=== PATIENT | female | born 1940 | race Caucasian/White ===

== ENCOUNTER 2022-03-30 02:23 | Emergency (ER) | payer MEDICARE, SELFPAY ==
[2022-03-30 02:27] VITALS: BP 179/78; PULSE 80; RESP 22; TEMP 36.8; O2SAT 95; BMI 32.1
--- NOTE | 2022-03-30 02:28 | ED_ITS ---
HPI - Allergic Reaction General: Chief complaint: Allergic Reaction Stated complaint: allergic reaction Time Seen by Provider: 03/30/22 02:25 Source: patient Mode of arrival: ambulatory Limitations: no limitations History of Present Illness: HPI narrative: 81-year-old female who states that she woke up over an hour ago with rash to her trunk and arms. States she is highly allergic to insecticides and was outside yesterday and believes she came in contact with something she is allergic to she does have hives states it is extremely pruritic she denies any shortness of breath difficulty swallowing or throat swelling patient did take Benadryl at home with minimal improvement. Associated symptoms: Deny abdominal pain, nausea or vomiting Review of Systems Const: Denies: fever(s), chills, body aches or change in appetite Eyes: Denies: blurry vision or eye discomfort ENMT: Denies: throat pain or dental pain Card: Denies: chest pain Resp: Denies: dyspnea GI: Denies: abdominal pain, nausea, vomiting or diarrhea : Denies: dysuria Musc: Denies: neck pain or back pain Skin/Breast: Reports: rash Neuro: Denies: headache(s) Psych: Denies: depression Kamlesh/Lymph: Denies: easy bruising All/Imm: Reports: urticaria PFSH ED PFSH: Medical History (Updated 03/30/22 @ 03:23 by Laureano Franklin MD) No pertinent past medical history Social History (Updated 03/30/22 @ 02:30 by Laureano Franklin MD) Substance/Drug Use: never Physical Exam Const: COMMON NORMALS: no acute distress, patient oriented x3 and healthy appearing HENMT: COMMON NORMALS: normocephalic and atraumatic HEAD & SCALP: normocephalic and atraumatic Eye: COMMON NORMALS: Equal, round and reactive pupils present and EOMs intact bilaterally PUPIL: Yes Equal, round and reactive pupils present Neck/C-Spine: COMMON NORMALS: full ROM and supple Chest: COMMONS NORMALS: normal inspection of the chest and normal palpation of entire chest wall Resp: COMMON NORMALS: normal respiratory effort, No retractions, No use of accessory muscles and clear to auscultation bilaterally AUSCULTATION: clear to auscultation bilaterally Cardio: COMMON NORMALS: regular rate, regular rhythm and No murmurs present (Cardio) RATE: regular rate RHYTHM: regular rhythm GI: COMMON NORMALS: Normal to inspection, nondistended, normoactive bowel sounds present, Soft to palpation, non-tender and no masses PALPATION: Yes Soft to palpation Extremity: COMMON NORMALS: normal to inspection and full ROM Neuro: COMMON NORMALS: patient oriented x3, moves all extremities and no focal motor deficits Psych: COMMON NORMALS: mental status grossly normal, Normal thought process present and cooperative THOUGHT PROCESS: Normal thought process present Skin: COMMON NORMALS: no wounds NARRATIVE SKIN EXAM: hives to trunk and arms Course Vital Signs: Vital signs: Vital Signs Temperature 98.2 F 03/30/22 02:27 Pulse Rate 80 03/30/22 02:27 Respiratory Rate 22 H 03/30/22 02:27 Blood Pressure 179/78 03/30/22 02:27 Pulse Oximetry 95 03/30/22 02:27 MDM - Allergic Reaction Medical Decision Making Patient presents with allergic reaction with urticaria her rash here is resolved after Pepcid Benadryl and Solu-Medrol she has no airway involvement she is stable for discharge we will place her on prednisone she is to follow-up with PCP and return if worsening she understands agrees to plan. Discharge Plan Discharge Patient Disposition: Home Clinical Impression: Allergic reaction, Urticaria Prescriptions: New prednisone 50 mg tablet 50 mg PO DAILY Qty: 5 0RF Discharge Orders: Discharge ED (Routine); Ordered 03/30/22 Ordered By: Laureano Franklin Referrals: Manoj Sierra, HOME [facility] CARE RESPIRATORY THERAPIST-C [Primary Care Provider] - 1-3 days Discharge Diet: Advance as tolerated Discharge Activity: Resume usual activity Patient Instructions: General Allergic Reaction (ED) Coding Level of Care Code ED Naphthalene Still Operator for Chg Fwd Exam Comprehensive
[2022-03-30] MEDS: famotidine 20 mg/2 mL INJ 40 MG IVP (02:40)
[2022-03-30] MEDS: diphenhydrAMINE 50 mg/mL SDV 1mL IVP (02:40)
[2022-03-30 03:03] VITALS: BP 133/67; PULSE 67; RESP 18; O2SAT 97
[2022-03-30 03:33] VITALS: BP 137/55; PULSE 70; RESP 16; O2SAT 95
[2022-03-30 03:49] VITALS: BP 137/55; PULSE 70; RESP 16; O2SAT 95
== END 2022-03-30 03:33 | disposition home or self-care (01) ==
PROVIDERS: Emergency Provider Emergency Medicine; PCP Nurse Practitioner
DX: T78.40XA Allergy, unspecified, initial encounter (principal); L50.9 Urticaria, unspecified
CPT/HCPCS: 96374; 96375; 99284; J1200; J2930; J3490

== ENCOUNTER 2022-04-03 17:10 | Emergency (ER) | payer MEDICARE, SELFPAY ==
[2022-04-03 17:28] VITALS: BP 153/74; PULSE 89; RESP 22; TEMP 36.6; O2SAT 94; BMI 31.1
--- NOTE | 2022-04-03 17:43 | ED_ITS ---
HPI - Allergic Reaction General: Chief complaint: Allergic Reaction Stated complaint: Allergic Rx, Breaking out all over, sob Time Seen by Provider: 04/03/22 17:42 History of Present Illness: HPI narrative: Ms. Kumar is a 81-year-old lady without significant past medical history presents to the emergency department due to allergic reaction. She was previously seen on 03/20 for similar. She is unsure of exactly what she was exposed to though previously was concerned over something in the garden such as insecticide. She had improvement with symptom treatment and was discharged on prednisone which had improved things until earlier today. She was outside in the garden again and subsequently developed severe urticaria. She had mild associated shortness of breath however this has not progressed and seems to have improved. Intensity of itching and rash is moderate to severe. Denies other significant signs of systemic involvement. No other specific changes in health, exacerbating, or alleviating factors identified. Onset (ago): hour(s) Severity: moderate Previous Allergic Reaction History: prior ED visit(s) Review of Systems General: Reports: 10 or more systems reviewed and unremarkable except in HPI and below ENMT: Denies: uvular edema PFS ED PFSH: Medical History No pertinent past medical history Surgical History No significant past surgical history Physical Exam Const: COMMON NORMALS: alert GENERAL APPEARANCE: cooperative and well developed HENMT: COMMON NORMALS: normocephalic and atraumatic HEAD & SCALP: normocephalic and atraumatic THROAT: posterior oropharynx normal and uvula midline; no uvular edema Eye: COMMON NORMALS: conjunctivae normal CONJUNCTIVA: Yes conjunctivae normal SCLERA: sclerae normal Neck/C-Spine: COMMON NORMALS: supple GENERAL: Yes trachea midline Resp: COMMON NORMALS: normal respiratory effort EFFORT & INSPECTION: Yes able to speak in complete sentences Cardio: COMMON NORMALS: regular rate and regular rhythm RATE: regular rate RHYTHM: regular rhythm GI: COMMON NORMALS: Soft to palpation PALPATION: Yes Soft to palpation and No Tenderness to palpation present (GI) PERCUSSION: normal to percussion Extremity: GENERAL: Yes normal exam except as noted and No edema Neuro: COMMON NORMALS: moves all extremities SENSORIUM/ORIENTATION: Yes alert and No Orientation impaired Psych: COMMON NORMALS: mental status grossly normal and Normal thought process present THOUGHT PROCESS: Normal thought process present Skin: RASHES: rashes noted (Urticarial rash primarily on distribution underclothes) Course ED course: - Patient was seen and evaluated by me at bedside - Patient placed on cardiac monitors, IV access obtained - Initial evaluation notable for exam as above. No evidence of anaphylaxis though patient does have significant areas of urticaria. Distribution is primarily underclothing though patient denies any recent changes in soaps or clothing or other known environmental exposures other than being outside. - Allergic reaction treatment ordered - Upon serial reexamination after treatment the patient was markedly improved with resolution of her urticaria and no recurrence of symptoms after observation period. - Based on patient history, evaluation, and testing as interpreted the most likely cause of the patient's condition is allergic reaction to unclear source, possible rebound allergic reaction. We will plan to add additional course of prednisone as well as Pepcid and as needed Benadryl. Additionally plan to send home with EpiPen. - The results of ED evaluation were discussed with the patient including prescriptions and/or symptomatic cares (if applicable) including appropriate and responsible use, followup plan, and return precautions. The patient verbalized understanding and felt safe for discharge. - Patient discharged in satisfactory condition. Note: Click bubbles or prepopulated wolf in note writing are used for assistance with data collection and billing and are inherently more limited than narrative and other text portions of this note. Please use narrative for additional clinical history and defer to narrative/free test for any case of contradictory information. If information appears in only free text or click bubble it should be considered present or absent as reported. Please contact note journalists and other writers for clarifications of clinical information or contradictory information. MDM is a brief summary, contradictory or erroneous seeming information should be clarified and full note should be reviewed. Vital Signs: Vital signs: Vital Signs Temperature 97.8 F 04/03/22 17:28 Pulse Rate 83 04/03/22 17:45 Respiratory Rate 20 H 04/03/22 17:45 Blood Pressure 180/49 04/03/22 17:45 Pulse Oximetry 95 04/03/22 17:45 MDM - Allergic Reaction Medical Decision Making 81-year-old lady presenting with urticarial rash/allergic reaction. No evidence of anaphylaxis. Resolution of symptoms with treatments. Plan to represcribe prednisone as well as Pepcid and as needed Benadryl. Satisfactory for outpatient management. Medical Records I reviewed the patient's medical records. Lab Data I reviewed the patient's lab results. Discharge Plan Discharge Patient Disposition: Home Clinical Impression: Allergic reaction, Urticaria Condition: Stable Prescriptions: New EpiPen 0.3 mg/0.3 mL auto-injector 0.3 mg IM Q10M PRN (Reason: anaphylaxis) Qty: 2 2RF Rx Instructions: for 2 doses No Action prednisone 50 mg tablet 50 mg PO DAILY Qty: 5 0RF Discharge Orders: Discharge ED (Routine); Ordered 04/03/22 Ordered By: Jerardo Mary Referrals: Manoj Sierra, LEONARDA [Primary Care Provider] - Discharge Diet: Usual diet Discharge Activity: Increase activity as tolerated Patient Instructions: Urticaria (ED), General Allergic Reaction (ED) Activity Restrictions/Additional Instructions: Thank you for visiting the emergency department. You were seen and evaluated for allergic reaction. The exact source of your allergic reaction is unclear. I will send prescriptions as discussed home with you for additional doses of steroids and also Pepcid. You may use up to 50 mg of Benadryl once every 8 hours as needed for itching despite other treatments. Please follow-up with your primary care provider. Please return to the emergency department for recurrence of symptoms despite treatment, or anything else that you are concerned about and feel needs emergency department evaluation. Coding Level of Care Code ED Technical Sales Specialist for Audrey Hatch
[2022-04-03 17:45] VITALS: BP 180/49; PULSE 83; RESP 20; O2SAT 95
[2022-04-03] MEDS: diphenhydrAMINE 50 mg/mL SDV 1mL IVP (18:16)
[2022-04-03] MEDS: famotidine 20 mg/2 mL INJ 40 MG IVP (18:22)
--- NOTE | 2022-04-03 20:07 | PC.NURSE ---
rash resolved pt feeling better
== END 2022-04-03 20:08 | disposition home or self-care (01) ==
PROVIDERS: Emergency Provider Emergency Medicine; PCP Nurse Practitioner
DX: T78.40XA Allergy, unspecified, initial encounter (principal); L50.0 Allergic urticaria
CPT/HCPCS: 96374; 96375; 99284; J1200; J2930; J3490

== ENCOUNTER 2022-07-29 06:00 | Outpatient (RCR) | payer MEDICARE, SELFPAY | END 2022-07-30 23:55 | disposition home or self-care (01) | LOC: SPT 06:00 | PROVIDERS: PCP Nurse Practitioner; Visit Provider Orthopaedic Surgery | DX: Z47.1 Aftercare following joint replacement surgery (principal); Z96.651 Presence of right artificial knee joint | CPT/HCPCS: 97161 ==

== ENCOUNTER 2022-07-31 06:00 | Outpatient (RCR) | payer MEDICARE, SELFPAY | END 2022-08-30 23:59 | disposition home or self-care (01) | LOC: SPT 06:00 | PROVIDERS: PCP Nurse Practitioner; Visit Provider Orthopaedic Surgery | DX: Z47.1 Aftercare following joint replacement surgery (principal); Z96.651 Presence of right artificial knee joint | CPT/HCPCS: 97110; 97116 ==

== ENCOUNTER 2022-08-31 06:00 | Outpatient (RCR) | payer MEDICARE, SELFPAY | END 2022-09-22 13:24 | disposition home or self-care (01) | LOC: SPT 06:00 | PROVIDERS: PCP Nurse Practitioner; Visit Provider Orthopaedic Surgery | DX: Z47.1 Aftercare following joint replacement surgery (principal); Z96.651 Presence of right artificial knee joint | CPT/HCPCS: 97110 ==

== ENCOUNTER 2023-08-31 06:00 | Outpatient (RCR) | payer MEDICARE, SELFPAY | END 2023-09-29 23:59 | disposition home or self-care (01) | LOC: TPT 06:00 | PROVIDERS: Visit Provider Orthopaedic Surgery | DX: M47.816 Spondylosis without myelopathy or radiculopathy, lumbar region (principal) | CPT/HCPCS: 97110; 97162 ==

== ENCOUNTER 2023-09-30 06:00 | Outpatient (RCR) | payer MEDICARE, SELFPAY | END 2023-10-30 23:59 | disposition home or self-care (01) | LOC: TPT 06:00 | PROVIDERS: Visit Provider Orthopaedic Surgery | DX: M47.816 Spondylosis without myelopathy or radiculopathy, lumbar region (principal) | CPT/HCPCS: 97110 ==

== ENCOUNTER 2023-10-31 06:00 | Outpatient (RCR) | payer MEDICARE, SELFPAY | END 2023-11-02 23:59 | disposition home or self-care (01) | LOC: TPT 06:00 | PROVIDERS: Visit Provider Orthopaedic Surgery | DX: M47.816 Spondylosis without myelopathy or radiculopathy, lumbar region (principal) | CPT/HCPCS: 97110 ==

== ENCOUNTER 2024-06-13 06:00 | Outpatient (RCR) | payer MEDICARE, SELFPAY | END 2024-06-30 23:59 | disposition home or self-care (01) | LOC: TPT 06:00 | PROVIDERS: Visit Provider Orthopaedic Surgery | DX: M75.81 Other shoulder lesions, right shoulder (principal) | CPT/HCPCS: 97110; 97140; 97162 ==

== ENCOUNTER 2025-03-27 12:34 | Outpatient (RCR) | payer MEDICARE, SELFPAY | END 2025-03-30 23:59 | disposition home or self-care (01) | LOC: SPT 12:34 | PROVIDERS: Visit Provider Nurse Practitioner Family | DX: R42 Dizziness and giddiness (principal) | CPT/HCPCS: 97161 ==

== ENCOUNTER → 2025-05-13 09:32 | Outpatient (BNVA) | payer MEDICARE, SELFPAY | PROVIDERS: Referring Provider Nurse Practitioner Family; Visit Provider Dermatology | DX: L82.1 Other seborrheic keratosis (principal); D18.01 Hemangioma of skin and subcutaneous tissue; L73.8 Other specified follicular disorders; D48.5 Neoplasm of uncertain behavior of skin; L57.0 Actinic keratosis | CPT/HCPCS: 11102; 17000; 99203 ==